=== PATIENT | female | born 1975 ===

== ENCOUNTER 2017-03-17 13:01 | Emergency (ER) | payer OTHER ==
[2017-03-17 13:15] VITALS: TEMP 98.1
[2017-03-17 14:02] LABS: BASO # 0.06 K/mm3 (0.0-2.0); BASO % 0.5 % (0.0-3.0); EOS # 0.2 (0.0-0.7); EOS % 1.5 % (1.5-5.0); GRAN # 7.2 (1.4-6.5); GRAN % 63.2 % (50.0-68.0); HEMATOCRIT 40.6 % (36.0-48.0); LYMPH # 3.4 (1.2-3.4); LYMPH % 30.2 % (22.0-35.0); MEAN CELL VOLUME 79.8 fl (80.0-105.0); MEAN CORPUSCULAR HEMOGLOBIN 27.9 pg (25.0-35.0); MONO # 0.5 (0.1-0.6); MONO % 4.6 % (1.0-6.0); RED CELL DISTRIBUTION WIDTH 13.4 % (11.5-14.5); WHITE BLOOD COUNT 11.4 10^3/ul (4.5-11.0)
[2017-03-17 14:03] LABS: URINE BILIRUBIN NEGATIVE (NEGATIVE); URINE BLOOD NEGATIVE (NEGATIVE); URINE GLUCOSE (UA) >=1000 mg/dL (NEGATIVE); URINE KETONE TRACE mg/dL (NEGATIVE); URINE LEUKOCYTE ESTERASE NEGATIVE Leu/uL (NEGATIVE); URINE PROTEIN TRACE mg/dL (<30 mg/dL); URINE UROBILINOGEN 0.2 E.U./dL (<1 E.U./dL)
[2017-03-17 14:05] LABS: URINE APPEARANCE SL CLOUDY (CLEAR); URINE COLOR YELLOW (YELLOW)
[2017-03-17 14:15] LABS: ALB/GLOB RATIO 1.3 (1.1-1.8); ALKALINE PHOSPHATASE 72 U/L (38-126); ALT/SGPT 31 U/L (7-56); AST/SGOT 22 U/L (14-36); BLOOD UREA NITROGEN 12 mg/dL (7-21); CALCIUM 9.3 mg/dL (8.4-10.5); CARBON DIOXIDE 29 mmol/L (21-33); CHLORIDE 99 mmol/L (98-107); GFR AFRICAN-AMERICAN > 60; GLUCOSE,RANDOM 251 mg/dL (70-110); MAGNESIUM 1.6 mg/dL (1.7-2.2); SODIUM 138 mmol/L (132-148); TOTAL PROTEIN 7.5 g/dL (5.8-8.3)
[2017-03-17 14:16] LABS: URINE BACTERIA MOD (NEG); URINE EPITHELIAL CELLS MANY /hpf (0-5); URINE RBC 0 - 2 /hpf (0-2); URINE WBC 0 - 2 /hpf (0-6)
--- NOTE | 2017-03-17 14:24 | RAD ---
HISTORY: CP COMPARISON: None available. TECHNIQUE: Chest, one view. FINDINGS: LUNGS: Examination limited by habitus and hypoinflation. No focal consolidation. Please note that chest x-ray has limited sensitivity for the detection of pulmonary masses. PLEURA: No significant pleural effusion identified. No definite pneumothorax . CARDIOVASCULAR: The cardiomediastinal silhouette appears within normal limits of size. OSSEOUS STRUCTURES: No acute osseous abnormality identified. VISUALIZED UPPER ABDOMEN: Unremarkable. OTHER FINDINGS: None. IMPRESSION: No focal consolidation, significant pleural effusion, or definite pneumothorax identified.
[2017-03-17 14:26] LABS: TROPONIN I < 0.01 ng/mL
--- NOTE | 2017-03-17 14:38 | ED PDOC ---
Arrival/HPI - General Chief Complaint: Chest Pain Time Seen by Provider: 03/17/17 13:12 Historian: Patient - History of Present Illness Narrative History of Present Illness (Text): 03/17/17 14:35 A 41 year old female, whose past medical history includes diabetes mellitus and hypertension, presents to the emergency department for intermittent chest pain with associated dizziness, which began 1 month ago. The patient denies and cough , shortness of breath, fever, headaches, vision changes, or any other complaints at this time. The patient reports her PMD is in [facility] and she has not seen her PMD in about 4 months. Time/Duration: Other (x 1 month ) Symptom Course: Unchanged Activities at Onset: Light Context: Home Past Medical History - Provider Review Nursing Documentation Reviewed: Yes - Infectious Disease Hx of Infectious Diseases: None - Cardiac Hx Hypertension: Yes - Endocrine/Metabolic Hx Diabetes Mellitus Type 2: Yes - Psychiatric Hx Substance Use: No - Surgical History Other/Comment: unable to name previous sx - Anesthesia Hx Anesthesia: Yes Hx Anesthesia Reactions: No Hx Malignant Hyperthermia: No Family/Social History - Physician Review Nursing Documentation Reviewed: Yes Family/Social History: Unknown Family HX Smoking Status: Never Smoked Hx Alcohol Use: No Hx Substance Use: No Allergies/Home Meds Allergies/Adverse Reactions: Allergies No Known Allergies Allergy (Verified 03/17/17 13:10) Home Medications: Home Meds Medication Instructions Recorded Confirmed Lisinopril [Zestril] 20 mg PO DAILY 03/17/17 03/17/17 Metformin ER [Glucophage XR] 500 mg PO DAILY 03/17/17 03/17/17 Review of Systems - Physician Review All systems were reviewed & negative as marked: Yes - Review of Systems Constitutional: absent: Fevers Eyes: absent: Vision Changes Respiratory: absent: SOB, Cough Cardiovascular: Chest Pain (intermittent x 1 month ) Neurological: Dizziness (intermitent x1 month ). absent: Headache Physical Exam Vital Signs Temp Pulse Resp BP Pulse Ox 03/17/17 15:25 89 17 140/81 99 03/17/17 15:07 99 H 18 138/96 H 98 03/17/17 13:20 98.1 F 114 H 18 145/110 H 98 03/17/17 13:04 98.1 F 114 H 20 145/110 H 98 Temperature: Afebrile Blood Pressure: Hypertensive Pulse: Tachycardic Respiratory Rate: Normal Appearance: Positive for: Well-Appearing, Non-Toxic, Comfortable Pain Distress: None Mental Status: Positive for: Alert and Oriented X 3 Finger Stick Blood Glucose: 283 - Systems Exam Head: Present: Atraumatic, Normocephalic Pupils: Present: PERRL Extroacular Muscles: Present: EOMI Conjunctiva: Present: Normal Mouth: Present: Moist Mucous Membranes Neck: Present: Normal Range of Motion Respiratory/Chest: Present: Clear to Auscultation, Good Air Exchange. No: Respiratory Distress, Accessory Muscle Use Cardiovascular: Present: Regular Rate and Rhythm, Normal S1, S2. No: Murmurs Abdomen: Present: Normal Bowel Sounds. No: Tenderness, Distention, Peritoneal Signs Back: Present: Normal Inspection Upper Extremity: Present: Normal Inspection. No: Cyanosis, Edema Lower Extremity: Present: Normal Inspection. No: Edema Neurological: Present: GCS=15, CN II-XII Intact, Speech Normal Skin: Present: Warm, Dry, Normal Color. No: Rashes Psychiatric: Present: Alert, Oriented x 3, Normal Insight, Normal Concentration Medical Decision Making ED Course and Treatment: 03/17/17 14:38 Impression: A 41 year old female with intermittent chest pain. Differential Diagnosis included but are not limited to: Plan: -- EKG -- Hand left 5th digit radiology -- Antivert -- Pregancy test -- Reassess and disposition Prior Visits: Notes and results from previous visits were reviewed. On // patient came in complaining of . Patient was discharged * with prescription of . Progress Notes: EKG: Ordered, reviewed, and independently interpreted the EKG. Rate : 80 BPM Rhythm : NSR Interpretation : No ST-segment elevations or depressions, no T-wave inversions, normal intervals. Comparison : No previous EKG for comparison. - Lab Interpretations Lab Results: 03/17/17 13:30 03/17/17 13:30 Lab Results 03/17/17 13:50: Urine Color Yellow, Urine Appearance Sl cloudy, Urine pH 6.0, Ur Specific Preemption >= 1.030, Urine Protein Trace H, Urine Glucose (UA) >=1000, Urine Ketones Trace H, Urine Blood Negative, Urine Nitrate Negative, Urine Bilirubin Negative, Urine Urobilinogen 0.2, Ur Leukocyte Esterase Negative, Urine RBC 0 - 2, Urine WBC 0 - 2, Ur Epithelial Cells Many, Urine Bacteria Mod, Urine Other Uyeast 03/17/17 13:30: Sodium 138, Potassium 4.0, Chloride 99, Carbon Dioxide 29, Anion Gap 14, BUN 12, Creatinine 0.6, Est GFR ( Amer) > 60, Est GFR (Non- Af Amer) > 60, Random Glucose 251 H, Calcium 9.3, Magnesium 1.6 L, Total Bilirubin 1.0, AST 22, ALT 31, Alkaline Phosphatase 72, Lactate Dehydrogenase 346, Total Creatine Kinase 40, Troponin I < 0.01, Total Protein 7.5, Albumin 4.2 , Globulin 3.3, Albumin/Globulin Ratio 1.3 03/17/17 13:30: WBC 11.4 H, RBC 5.09, Hgb 14.2, Hct 40.6, MCV 79.8 L, MCH 27.9, MCHC 35.0, RDW 13.4, Plt Count 384, MPV 10.0, Gran % 63.2, Lymph % (Auto) 30.2, [place] % (Auto) 4.6, Eos % (Auto) 1.5, Baso % (Auto) 0.5, Gran # 7.20 H, Lymph # 3.4, [place] # 0.5, Eos # 0.2, Baso # 0.06 - RAD Interpretation Radiology Orders: 03/17/17 13:33 CHEST PORTABLE [RAD] Stat 03/17/17 14:31 HAND LEFT 5TH DIGIT (FINGER) [RAD] Stat - Medication Orders Current Medication Orders: Discontinued Medications Meclizine HCl (Antivert) 25 mg PO STAT STA Stop: 03/17/17 13:35 Last Admin: 03/17/17 13:43 Dose: 25 mg - Scribe Statement The provider has reviewed the documentation as recorded by the Stef Singleton Provider Scribe Attestation: All medical record entries made by the Scribe were at my direction and personally dictated by me. I have reviewed the chart and agree that the record accurately reflects my personal performance of the history, physical exam, medical decision making, and the department course for this patient. I have also personally directed, reviewed, and agree with the discharge instructions and disposition. Disposition/Present on Arrival - Present on Arrival Any Indicators Present on Arrival: No History of DVT/PE: No History of Uncontrolled Diabetes: No Urinary Catheter: No History of Decub. Ulcer: No History Surgical Site Infection Following: None - Disposition Have Diagnosis and Disposition been Completed?: Yes Diagnosis: Dizziness, Non-cardiac chest pain Disposition: HOME/ ROUTINE Disposition Time: 15:05 Condition: GOOD Discharge Instructions (ExitCare): Chest Pain (ED), Dizziness (ED), Noncardiac Chest Pain (ED) Print Language: GIBR[place] Additional Instructions: Thank you for letting us take care of you today. Your provider was Dr. Monique. You were treated for dizziness. The emergency medical care you received today was directed at your acute symptoms. If you were prescribed any medication, please fill it and take as directed. It may take several days for your symptoms to resolve. Return to the Emergency Department if your symptoms worsen, do not improve, or if you have any other problems. Please contact your doctor or call one of the physicians/clinics you have been referred to that are listed on the Patient Visit Information form that is included in your discharge packet. Bring any paperwork you were given at discharge with you along with any medications you are taking to your follow up visit. Our treatment cannot replace ongoing medical care by a primary care provider (PCP) outside of the emergency department. Thank you for allowing the [facility] team to be part of your care today. Follow up with the clinic in 3-4 days for re-evaluation and outpatient followup. Prescriptions: Meclizine [Meclizine*] 25 mg PO Q6 PRN #20 tab PRN Reason: Dizziness Referrals: PCP,NO [Primary Care Provider] - Follow up with primary Forms: Dat[employer]ide (Vietnamese)
--- NOTE | 2017-03-17 15:09 | RAD ---
PROCEDURE: Left small finger radiographs. HISTORY: r/o fx COMPARISON: None available. TECHNIQUE: AP radiograph of the left hand, as well as spot oblique and lateral images of left small finger were obtained. FINDINGS: LEFT SMALL FINGER: Unremarkable left 5th digit without acute displaced fracture identified. Remainder of the left hand (as seen on the AP view) is grossly unremarkable. JOINTS: No dislocation. SOFT TISSUES: Unremarkable. No evidence of radiopaque foreign body. OTHER FINDINGS: None. IMPRESSION: No acute displaced fracture or subluxation identified. If symptoms persist or if there is continued clinical concern, x-ray follow-up in 7-10 days should be considered.
[2017-03-17 15:26] VITALS: PULSE 89; RESP 17; O2SAT 99
[2017-03-17 15:31] VITALS: BP 140/81
--- NOTE | 2017-03-19 07:27 | CARD ---
APPROVED REPORT EKG Measurement Heart [id number] <Conclusion> Poor data quality, interpretation may be adversely affected Normal sinus rhythm Normal ECG
== END 2017-03-17 15:25 | disposition home or self-care (01) ==
LOC: ED 13:01
DX: R42 Dizziness and giddiness (principal); R07.89 Other chest pain